=== PATIENT | male | born 1965 | race Caucasian/White ===

== ENCOUNTER 2017-12-06 04:37 | Emergency (ER) | payer MEDICAID ==
--- NOTE | 2017-12-06 04:48 | ED PDOC ---
Arrival/HPI - General Chief Complaint: Abdominal Pain Time Seen by Provider: 12/06/17 04:39 Historian: Patient - History of Present Illness Narrative History of Present Illness (Text): 12/06/17 04:48 Sanjay Greenberg is a 52 year old male who present to the Emergency department complaining of abdominal pain status post hernia repair surgery yesterday. Patient states he recently underwent an umbilical hernia repair yesterday at [facility] yesterday on Percocet. Patient state tonight he woke up with pain over surgical site and notes he feels bloated. Patient reports some associated constipated. Patient denies any fever, chills, chest pain, shortness of breath, nausea, vomiting, diarrhea, urinary symptoms, back pain, neck pain, headache, dizziness, or any other complaints. Symptom Onset: Gradual (yesterday) Symptom Course: Unchanged Activities at Onset: Sleeping Context: Home Past Medical History - Provider Review Nursing Documentation Reviewed: Yes - Psychiatric Hx Substance Use: No Family/Social History - Physician Review Nursing Documentation Reviewed: Yes Family/Social History: Unknown Family HX Smoking Status: no Hx Alcohol Use: No Hx Substance Use: No Allergies/Home Meds Allergies/Adverse Reactions: Allergies No Known Allergies Allergy (Verified 07/05/17 08:35) Home Medications: Home Meds Medication Instructions Recorded Confirmed Omeprazole 40 mg PO DAILY 12/06/17 12/06/17 oxyCODONE/Acetaminophen [Percocet 1 tab PO PRN PRN 12/06/17 12/06/17 5/325 mg Tab] Review of Systems - Physician Review All systems were reviewed & negative as marked: Yes - Review of Systems Constitutional: Normal. absent: Fevers Eyes: Normal ENT: Normal Respiratory: Normal. absent: SOB, Cough Cardiovascular: Normal. absent: Chest Pain Gastrointestinal: Abdominal Pain, Constipation. absent: Diarrhea, Vomiting Genitourinary Male: Normal. absent: Dysuria, Frequency, Hematuria, Urinary Output Changes Musculoskeletal: Normal. absent: Back Pain, Neck Pain Skin: Normal. absent: Rash Neurological: Normal. absent: Headache, Dizziness Endocrine: Normal Hemo/Lymphatic: Normal Psychiatric: Normal Physical Exam Vital Signs Reviewed: Yes Vital Signs Temp Pulse Resp BP Pulse Ox 12/06/17 10:47 108 H 18 132/75 94 L 12/06/17 07:26 98.2 F 107 H 20 143/77 95 12/06/17 04:53 98.1 F 103 H 20 142/85 92 L Temperature: Afebrile Blood Pressure: Normal Pulse: Regular Respiratory Rate: Normal Appearance: Positive for: Well-Appearing, Non-Toxic, Comfortable Pain Distress: None Mental Status: Positive for: Alert and Oriented X 3 - Systems Exam Head: Present: Atraumatic, Normocephalic Pupils: Present: PERRL Extroacular Muscles: Present: EOMI Conjunctiva: Present: Normal Mouth: Present: Moist Mucous Membranes Neck: Present: Normal Range of Motion Respiratory/Chest: Present: Clear to Auscultation, Good Air Exchange. No: Respiratory Distress, Accessory Muscle Use Cardiovascular: Present: Regular Rate and Rhythm, Normal S1, S2. No: Murmurs Abdomen: Present: Tenderness (Tenderness over umbilicus), Other (Surgical site clean/dry, no sign of infection noted). No: Distention, Peritoneal Signs Back: Present: Normal Inspection Upper Extremity: Present: Normal Inspection. No: Cyanosis, Edema Lower Extremity: Present: Normal Inspection. No: Edema Neurological: Present: GCS=15, CN II-XII Intact, Speech Normal Skin: Present: Warm, Dry, Normal Color. No: Rashes Psychiatric: Present: Alert, Oriented x 3, Normal Insight, Normal Concentration Medical Decision Making ED Course and Treatment: 12/06/17 04:48 Impression: 52 year old male complaining of abdominal pain and constipation. Requested a fleet enema. Plan: -- Bladder scan -- XR Abdomen -- Reassess and disposition Progress Notes: 12/06/17 06:12 Reviewed radiology, XR Abdomen shows no acute processes, no free air. - Lab Interpretations Lab Results: 12/06/17 07:08 12/06/17 07:08 Lab Results 12/06/17 07:08: Sodium 130 L, Potassium 4.2, Chloride 90 L, Carbon Dioxide 28, Anion Gap 17, BUN 13, Creatinine 0.9, Est GFR ( Amer) > 60, Est GFR (Non- Af Amer) > 60, Random Glucose 127 H, Calcium 10.0, Total Bilirubin 1.2, AST 63 H , ALT 54, Alkaline Phosphatase 75, Total Protein 7.9, Albumin 4.4, Globulin 3.5 , Albumin/Globulin Ratio 1.2 12/06/17 07:08: WBC 18.0 H, RBC 5.00, Hgb 15.5, Hct 42.5, MCV 85.0, MCH 31.0, MCHC 36.5, RDW 12.8, Plt Count 347, MPV 9.1, Gran % 87.6 H, Lymph % (Auto) 5.9 L , Mason % (Auto) 5.4, Eos % (Auto) 0.9 L, Baso % (Auto) 0.2, Gran # 15.79 H, Lymph # (Auto) 1.1 L, Mason # (Auto) 1.0 H, Eos # (Auto) 0.2, Baso # (Auto) 0.03 - RAD Interpretation Radiology Orders: 12/06/17 04:55 ABD 2 VIEWS (FLAT/UP OR DECUB) [RAD] Stat 12/06/17 06:57 ABD & PELVIS IV CONTRAST ONLY [CT] Stat Repairing Calibrator: ED Physician - Medication Orders Current Medication Orders: Discontinued Medications Sodium Chloride (Sodium Chloride 0.9%) 1,000 mls @ 80 mls/hr IV .[id number] CECIL Last Admin: 12/06/17 07:18 Dose: 80 mls/hr eMAR Start Stop Document 12/06/17 07:18 OCS (Rec: 12/06/17 07:19 OCS [id number]) Intravenous Solution Start Date 12/06/17 Start Time 07:19 Morphine Sulfate (Morphine) 2 mg IVP STAT STA Stop: 12/06/17 06:23 Last Admin: 12/06/17 06:47 Dose: Morphine Sulfate (Morphine) 2 mg SC STAT STA Stop: 12/06/17 06:23 Last Admin: 12/06/17 06:37 Dose: 2 mg [facility] Pain Assessment Document 12/06/17 06:37 CNR (Rec: 12/06/17 06:38 [facility]NR [id number] Pain Reassessment Is this a pain reassessment? Yes Subcutaneous Administrations Document 12/06/17 06:37 CNR (Rec: 12/06/17 06:38 CNR [facility] [id number] Injection Site MAR Injection Site Right Arm Charges for Administration # of Subcutaneous Administrations 1 Re-Assess: FAUZIA Pain Assessment Document 12/06/17 07:37 OCS (Rec: 12/06/17 08:25 OCS [id number]) Pain Reassessment Is this a pain reassessment? Yes Sleep Is patient sleeping during reassessment? No Presence of Pain Presence of Pain Yes Pain Scale Used Pain Scale Used Numeric Description Description Constant Intensity of Pain at present 10 Morphine Sulfate (Morphine) 4 mg IVP STAT STA Stop: 12/06/17 08:05 Last Admin: 12/06/17 08:21 Dose: 4 mg MAR Pain Assessment Document 12/06/17 08:21 OCS (Rec: 12/06/17 08:22 OCS [id number]) Pain Reassessment Is this a pain reassessment? Yes Sleep Is patient sleeping during reassessment? No Presence of Pain Presence of Pain Yes Pain Scale Used Pain Scale Used Numeric Description Description Constant Intensity of Pain at present 10 Pain Behavior Moaning Irritability Aggravating Factors ADL's IVP Administration Document 12/06/17 08:21 OCS (Rec: 12/06/17 08:22 OCS [id number]) Charges for Administration # of IVP Administrations 1 Ondansetron HCl (Zofran Inj) 4 mg IVP STAT STA Stop: 12/06/17 08:05 Last Admin: 12/06/17 08:21 Dose: 4 mg IVP Administration Document 12/06/17 08:21 OCS (Rec: 12/06/17 08:21 OCS [id number]) Charges for Administration # of IVP Administrations 1 Sodium Phosphate (Fleet Enema) 135 ml RC STAT STA Stop: 12/06/17 05:23 Last Admin: 12/06/17 05:58 Dose: 135 ml - Transfer of Care Patient signed out to Dr:Alejandra villasenor ct results and dispo - Scribe Statement The provider has reviewed the documentation as recorded by the Andrew Reich Provider Scribe Attestation: All medical record entries made by the Scribe were at my direction and personally dictated by me. I have reviewed the chart and agree that the record accurately reflects my personal performance of the history, physical exam, medical decision making, and the department course for this patient. I have also personally directed, reviewed, and agree with the discharge instructions and disposition. Disposition/Present on Arrival - Present on Arrival Any Indicators Present on Arrival: No History of DVT/PE: No History of Uncontrolled Diabetes: No Urinary Catheter: No History of Decub. Ulcer: No History Surgical Site Infection Following: None - Disposition Have Diagnosis and Disposition been Completed?: Yes Diagnosis: Post-op pain, Seroma after procedure Disposition: HOME/ ROUTINE Disposition Time: 07:00 Condition: GOOD Discharge Instructions (ExitCare): Groin Hernia Repair (DC), Postoperative Pain (DC) Additional Instructions: Sanjay, I spoke with your surgeon, you have a hematoma (bruise) in the incisional area and it is probably why you are having pain. Percocet is for bad pain, but it is addicting, so only take it if the pain is unbearable. Dr Dodd wants to see you tomorrow in her office. Best- Dr. Fermin Osborne Prescriptions: oxyCODONE/Acetaminophen [Percocet 5/325 mg Tab] 1 ea PO QID #12 tab Ondansetron ODT [Zofran ODT] 8 mg PO TID #15 odt Referrals: Magdiel Cm MD [Primary Care Provider] - Follow up with primary Forms: [employer] (Bahamian)
[2017-12-06] MEDS ORDERED: Morphine 4 mg/ml ISec SC STA (06:22)
[2017-12-06] MEDS ORDERED: Morphine 4 mg/ml ISec IVP STA ×2 (06:22→08:04)
[2017-12-06] MEDS ORDERED: Sodium Chloride 0.9% 1,000 ML IV SCH (07:00)
--- NOTE | 2017-12-06 07:17 | ED PDOC ---
Physical Exam Vital Signs Reviewed: Yes Vital Signs Temp Pulse Resp BP Pulse Ox 12/06/17 07:26 98.2 F 107 H 20 143/77 95 12/06/17 04:53 98.1 F 103 H 20 142/85 92 L Temperature: Afebrile Blood Pressure: Normal Pulse: Tachycardic Respiratory Rate: Normal Medical Decision Making ED Course and Treatment: 12/06/17 07:16 Patient endorsed to me by Dr. Marcelo, pending CT results, re-evaluation and disposition. Report Date : 12/06/2017 09:35:19 PROCEDURE: CT Abdomen and Pelvis without intravenous contrast Dictator : Johnny Wilhelm MD IMPRESSION: There has been recent hernia surgery. There is a collection of blood and air at the surgical site just beneath the surgical clips. This measures 12 cm with by 4.4 cm AP x 8 cm in height. This is consistent with a postoperative seroma or hematoma. There is no evidence of herniated bowel loops. 12/06/17 10:23 Case discussed with patients surgeon Dr. Dodd, states to administer pain medication and have patient follow up tomorrow in his office. - Lab Interpretations Lab Results: 12/06/17 07:08 12/06/17 07:08 Lab Results 12/06/17 07:08: Sodium 130 L, Potassium 4.2, Chloride 90 L, Carbon Dioxide 28, Anion Gap 17, BUN 13, Creatinine 0.9, Est GFR ( Amer) > 60, Est GFR (Non- Af Amer) > 60, Random Glucose 127 H, Calcium 10.0, Total Bilirubin 1.2, AST 63 H , ALT 54, Alkaline Phosphatase 75, Total Protein 7.9, Albumin 4.4, Globulin 3.5 , Albumin/Globulin Ratio 1.2 12/06/17 07:08: WBC 18.0 H, RBC 5.00, Hgb 15.5, Hct 42.5, MCV 85.0, MCH 31.0, MCHC 36.5, RDW 12.8, Plt Count 347, MPV 9.1, Gran % 87.6 H, Lymph % (Auto) 5.9 L , [place] % (Auto) 5.4, Eos % (Auto) 0.9 L, Baso % (Auto) 0.2, Gran # 15.79 H, Lymph # (Auto) 1.1 L, [place] # (Auto) 1.0 H, Eos # (Auto) 0.2, Baso # (Auto) 0.03 - RAD Interpretation Radiology Orders: 12/06/17 04:55 ABD 2 VIEWS (FLAT/UP OR DECUB) [RAD] Stat 12/06/17 06:57 ABD & PELVIS IV CONTRAST ONLY [CT] Stat - Medication Orders Current Medication Orders: Sodium Chloride (Sodium Chloride 0.9%) 1,000 mls @ 80 mls/hr IV .[id number] CECIL Last Admin: 12/06/17 07:18 Dose: 80 mls/hr eMAR Start Stop Document 12/06/17 07:18 OCS (Rec: 12/06/17 07:19 OCS [id number]) Intravenous Solution Start Date 12/06/17 Start Time 07:19 Discontinued Medications Morphine Sulfate (Morphine) 2 mg IVP STAT STA Stop: 12/06/17 06:23 Last Admin: 12/06/17 06:47 Dose: Morphine Sulfate (Morphine) 2 mg SC STAT STA Stop: 12/06/17 06:23 Last Admin: 12/06/17 06:37 Dose: 2 mg [facility] Pain Assessment Document 12/06/17 06:37 CNR (Rec: 12/06/17 06:38 CNR [facility] [id number] Pain Reassessment Is this a pain reassessment? Yes Subcutaneous Administrations Document 12/06/17 06:37 CNR (Rec: 12/06/17 06:38 CNR [facility] [id number] Injection Site MAR Injection Site Right Arm Charges for Administration # of Subcutaneous Administrations 1 Re-Assess: MAR Pain Assessment Document 12/06/17 07:37 OCS (Rec: 12/06/17 08:25 OCS [id number]) Pain Reassessment Is this a pain reassessment? Yes Sleep Is patient sleeping during reassessment? No Presence of Pain Presence of Pain Yes Pain Scale Used Pain Scale Used Numeric Description Description Constant Intensity of Pain at present 10 Morphine Sulfate (Morphine) 4 mg IVP STAT STA Stop: 12/06/17 08:05 Last Admin: 12/06/17 08:21 Dose: 4 mg MAR Pain Assessment Document 12/06/17 08:21 OCS (Rec: 12/06/17 08:22 OCS [id number]) Pain Reassessment Is this a pain reassessment? Yes Sleep Is patient sleeping during reassessment? No Presence of Pain Presence of Pain Yes Pain Scale Used Pain Scale Used Numeric Description Description Constant Intensity of Pain at present 10 Pain Behavior Moaning Irritability Aggravating Factors ADL's IVP Administration Document 12/06/17 08:21 OCS (Rec: 12/06/17 08:22 OCS [id number]) Charges for Administration # of IVP Administrations 1 Ondansetron HCl (Zofran Inj) 4 mg IVP STAT STA Stop: 12/06/17 08:05 Last Admin: 12/06/17 08:21 Dose: 4 mg IVP Administration Document 12/06/17 08:21 OCS (Rec: 12/06/17 08:21 OCS [id number]) Charges for Administration # of IVP Administrations 1 Sodium Phosphate (Fleet Enema) 135 ml RC STAT STA Stop: 12/06/17 05:23 Last Admin: 12/06/17 05:58 Dose: 135 ml - Scribe Statement The provider has reviewed the documentation as recorded by the Laceyibstarla Mckenzie Provider Scribe Attestation: All medical record entries made by the Scribe were at my direction and personally dictated by me. I have reviewed the chart and agree that the record accurately reflects my personal performance of the history, physical exam, medical decision making, and the department course for this patient. I have also personally directed, reviewed, and agree with the discharge instructions and disposition. Disposition/Present on Arrival - Present on Arrival Any Indicators Present on Arrival: No History of DVT/PE: No History of Uncontrolled Diabetes: No Urinary Catheter: No History of Decub. Ulcer: No History Surgical Site Infection Following: None - Disposition Have Diagnosis and Disposition been Completed?: Yes Diagnosis: Post-op pain, Seroma after procedure Disposition: HOME/ ROUTINE Disposition Time: 10:23 Patient Plan: Discharge Condition: GOOD Discharge Instructions (ExitCare): Groin Hernia Repair (DC), Postoperative Pain (DC) Additional Instructions: Sanjay, I spoke with your surgeon, you have a hematoma (bruise) in the incisional area and it is probably why you are having pain. Percocet is for bad pain, but it is addicting, so only take it if the pain is unbearable. Dr Dodd wants to see you tomorrow in her office. Jose Cruz- Dr. Fermin Osborne Prescriptions: Ondansetron ODT [Zofran ODT] 8 mg PO TID #15 odt oxyCODONE/Acetaminophen [Percocet 5/325 mg Tab] 1 ea PO QID #12 tab Referrals: Magdiel Cm MD [Primary Care Provider] - Follow up with primary Forms: [employer] (Italian)
[2017-12-06 07:26] VITALS: TEMP 98.2
[2017-12-06 07:36] LABS: ALB/GLOB RATIO 1.2 (1.1-1.8); ALBUMIN 4.4 g/dL (3.0-4.8); ALT/SGPT 54 U/L (7-56); AST/SGOT 63 U/L (17-59); BASO # 0.03 K/mm3 (0.0-2.0); BASO % 0.2 % (0.0-3.0); BLOOD UREA NITROGEN 13 mg/dL (7-21); EOS # 0.2 (0.0-0.7); EOS % 0.9 % (1.5-5.0); GFR AFRICAN-AMERICAN > 60; GFR NON-AFRICAN AMERICAN > 60; GRAN # 15.79 (1.4-6.5); GRAN % 87.6 % (50.0-68.0); HEMOGLOBIN 15.5 g/dL (14.0-18.0); LYMPH # 1.1 (1.2-3.4); LYMPH % 5.9 % (22.0-35.0); MEAN CORPUSCULAR HGB CONC 36.5 g/dl (31.0-37.0); MEAN PLATELET VOLUME 9.1 fl (7.0-11.0); MONO % 5.4 % (1.0-6.0); RED CELL DISTRIBUTION WIDTH 12.8 % (11.5-14.5)
[2017-12-06] MEDS ORDERED: Iohexol 350 MG/100 ML VIAL ONE (07:54)
--- NOTE | 2017-12-06 09:36 | CT ---
PROCEDURE: CT Abdomen and Pelvis without intravenous contrast HISTORY: abd pain COMPARISON: 11/01/2017 CT from [facility] TECHNIQUE: Without contrast. Contrast Dose: Radiation dose: Total exam DLP = Total exam DLP = 1256 mGy-cm. This CT exam was performed using one or more of the following dose reduction techniques: Automated exposure control, adjustment of the mA and/or kV according to patient size, and/or use of iterative reconstruction technique. FINDINGS: LOWER THORAX: Unremarkable. LIVER: Unremarkable. No gross lesion or ductal dilatation. GALLBLADDER AND BILE DUCTS: Unremarkable. PANCREAS: Unremarkable. No gross lesion or ductal dilatation. SPLEEN: Unremarkable. ADRENALS: Unremarkable. No mass. KIDNEYS AND URETERS: Unremarkable. No hydronephrosis. No solid mass. VASCULATURE: Unremarkable. No aortic aneurysm. BOWEL: Unremarkable. No obstruction. No gross mural thickening. There has been recent hernia surgery. There is a collection of blood and air at the surgical site just beneath the surgical clips. This measures 12 cm with by 4.4 cm AP x 8 cm in height. This is consistent with a postoperative seroma or hematoma. There is no evidence of herniated bowel loops. There is moderate distention of the colon. Small bowel is normal in caliber. APPENDIX: Unremarkable. Normal appendix. PERITONEUM: Unremarkable. No free fluid. No free air. LYMPH NODES: Unremarkable. No enlarged lymph nodes. BLADDER: Unremarkable. REPRODUCTIVE: Unremarkable. BONES: No acute fracture. OTHER FINDINGS: None. IMPRESSION: There has been recent hernia surgery. There is a collection of blood and air at the surgical site just beneath the surgical clips. This measures 12 cm with by 4.4 cm AP x 8 cm in height. This is consistent with a postoperative seroma or hematoma. There is no evidence of herniated bowel loops.
--- NOTE | 2017-12-06 09:47 | RAD ---
HISTORY: abd pain COMPARISON: No prior. FINDINGS: BOWEL: Normal. No obstruction. No free air. Mildly dilated colon. BONES: Normal. OTHER FINDINGS: None. IMPRESSION: Mildly dilated colon. No evidence of small bowel obstruction
[2017-12-06 10:48] VITALS: BP 132/75; PULSE 108; RESP 18; O2SAT 94
== END 2017-12-06 11:05 | disposition home or self-care (01) ==
LOC: ED 04:37 → MERGE 04:37 → ED 11:05
DX: G89.18 Other acute postprocedural pain (principal); L76.34 Postprocedural seroma of skin and subcutaneous tissue following other procedure
CPT/HCPCS: 74019; 74177; 80053; 85025; 96372; 96374; 96375; 99284; J2270; J2405; J7040; Q9967

== ENCOUNTER 2018-05-25 09:09 | Emergency (ER) | payer MEDICAID ==
[2018-05-25 09:09] VITALS: BMI 32.5
[2018-05-25 09:38] VITALS: TEMP 98.7
[2018-05-25] MEDS ORDERED: Amoxicillin-Clav 875-125 mg Tab PO STA (09:38)
--- NOTE | 2018-05-25 09:42 | ED PDOC ---
Arrival/HPI - General Historian: Patient - History of Present Illness Narrative History of Present Illness (Text): 05/25/18 09:39 52yo male with pmhx of hypertension present with complaint of sore throat, b/l ear pain, nasal congestion, facial pain, nonproductive cough x 2days. He did not take any medication for the symptoms. Denies fever, chills, sick contact, travel, nausea, vomiting ,any other complaint. <Rosa Puente A - Last Filed: 05/25/18 09:39> <Edgardo Smith - Last Filed: 05/25/18 15:51> - General Chief Complaint: ENT Problem Time Seen by Provider: 05/25/18 09:31 Past Medical History - Provider Review Nursing Documentation Reviewed: Yes - Infectious Disease Hx of Infectious Diseases: None - Cardiac Hx Cardiac Disorders: Yes Hx Hypertension: Yes - Pulmonary Hx Respiratory Disorders: Yes Hx Bronchitis: Yes - Neurological Hx Neurological Disorder: No - HEENT Hx HEENT Disorder: No - Renal Hx Renal Disorder: No - Endocrine/Metabolic Hx Endocrine Disorders: No - Hematological/Oncological Hx Blood Disorders: No - Integumentary Hx Dermatological Disorder: No - Musculoskeletal/Rheumatological Hx Musculoskeletal Disorders: Yes Hx Arthritis: Yes - Gastrointestinal Hx Gastrointestinal Disorders: No - Psychiatric Hx Psychophysiologic Disorder: Yes Hx Anxiety: Yes Hx Substance Use: No - Anesthesia Hx Anesthesia: Yes Hx Anesthesia Reactions: No <Rosa Puente A - Last Filed: 05/25/18 09:39> Family/Social History - Physician Review Nursing Documentation Reviewed: Yes Family/Social History: Unknown Family HX Smoking Status: Light Smoker < 10 Cigarettes Daily Hx Alcohol Use: Yes Frequency of alcohol use: Socially Hx Substance Use: No <Rosa Puente A - Last Filed: 05/25/18 09:39> Allergies/Home Meds <Rosa Puente A - Last Filed: 05/25/18 09:39> <Edgardo Smith - Last Filed: 05/25/18 15:51> Allergies/Adverse Reactions: Allergies No Known Allergies Allergy (Verified 12/27/17 18:45) Home Medications: Home Meds Medication Instructions Recorded Confirmed RX: Losartan [Cozaar] 25 mg PO DAILY 05/25/18 05/25/18 Review of Systems - Physician Review All systems were reviewed & negative as marked: Yes - Review of Systems Constitutional: Normal Eyes: Normal ENT: Sore Throat, Other (Ear pain) Respiratory: Cough Cardiovascular: Normal Gastrointestinal: Normal Genitourinary Male: Normal Musculoskeletal: Normal Skin: Normal Neurological: Normal Endocrine: Normal Hemo/Lymphatic: Normal Psychiatric: Normal <Diru,Happiness A - Last Filed: 05/25/18 09:39> Physical Exam Vital Signs Reviewed: Yes Vital Signs Temp Pulse Resp BP Pulse Ox 05/25/18 09:23 98.7 F 93 H 16 134/90 95 Temperature: Afebrile Blood Pressure: Normal Pulse: Regular Respiratory Rate: Normal Appearance: Positive for: Well-Appearing, Non-Toxic, Comfortable Pain Distress: None Mental Status: Positive for: Alert and Oriented X 3 - Systems Exam Head: Present: Atraumatic, Normocephalic Pupils: Present: PERRL Extroacular Muscles: Present: EOMI Conjunctiva: Present: Normal Mouth: Present: Moist Mucous Membranes Pharnyx: Present: Normal. No: ERYTHEMA, EXUDATE, TONSILS ENLARGED, Peritonsilar Swelling, Uvular Deviation, Muffled/Hoarse Voice, Strider Nose (Internal): Present: Boggy (B/L turbinates), Other (Tenderness on palpation over the maxillary and frontal sinuses) Neck: Present: Normal Range of Motion Respiratory/Chest: Present: Clear to Auscultation, Good Air Exchange. No: Respiratory Distress, Accessory Muscle Use, Wheezes, Decreased Breath Sounds, Retracting, Rhonchi, Tachypneic Cardiovascular: Present: Regular Rate and Rhythm, Normal S1, S2. No: Murmurs Abdomen: No: Tenderness, Distention, Peritoneal Signs Back: Present: Normal Inspection Upper Extremity: Present: Normal Inspection. No: Cyanosis, Edema Lower Extremity: Present: Normal Inspection. No: Edema Neurological: Present: GCS=15, CN II-XII Intact, Speech Normal Skin: Present: Warm, Dry, Normal Color. No: Rashes Psychiatric: Present: Alert, Oriented x 3, Normal Insight, Normal Concentration <Diru,Happiness A - Last Filed: 05/25/18 09:39> Vital Signs Temp Pulse Resp BP Pulse Ox 05/25/18 10:04 96 05/25/18 10:03 90 18 135/87 96 05/25/18 09:23 98.7 F 93 H 16 134/90 95 <Tolerico,Edgardo - Last Filed: 05/25/18 15:51> Medical Decision Making ED Course and Treatment: 05/25/18 09:43 52yo male who present with stated history. He was hemodynamically stable in ED. He had tenderness over his sinuses. His PE was otherwise benign. Secondary to pt's symptom and exam he will be treated for sinusitits with abx, which was possible causing his otalgia and sore throat. Plan was DW the pt and he understood. He was referred to his PMd TRT Ed for worsening symptoms. <Rosa Puente - Last Filed: 05/25/18 09:39> - Medication Orders Current Medication Orders: Discontinued Medications Amoxicillin/Clavulanate Potassium (Augmentin 875 Mg-125 Mg Tab) 1 tab PO STAT STA; Protocol Stop: 05/25/18 09:39 Last Admin: 05/25/18 10:02 Dose: 1 tab Benzonatate (Tessalon Perles) 100 mg PO ONCE STA Stop: 05/25/18 09:39 Last Admin: 05/25/18 10:02 Dose: 100 mg Ibuprofen (Motrin Tab) 600 mg PO STAT STA Stop: 05/25/18 09:40 Last Admin: 05/25/18 10:02 Dose: 600 mg <Edgardo Smith - Last Filed: 05/25/18 15:51> - PA / DOUGHNUT [employer]YER / Resident Statement / has reviewed & agrees with the documentation as recorded. <Edgardo Smith - Last Filed: 05/25/18 15:51> Disposition/Present on Arrival - Present on Arrival Any Indicators Present on Arrival: No History of DVT/PE: No History of Uncontrolled Diabetes: No Urinary Catheter: No History of Decub. Ulcer: No History Surgical Site Infection Following: None - Disposition Have Diagnosis and Disposition been Completed?: Yes Disposition Time: 09:50 Patient Plan: Discharge <Rosa Puente - Last Filed: 05/25/18 09:39> <Edgardo Smith - Last Filed: 05/25/18 15:51> - Disposition Diagnosis: Acute sinusitis, Otalgia, Sore throat Disposition: HOME/ ROUTINE Condition: STABLE Discharge Instructions (ExitCare): Sinusitis in Adults, Sore Throat, Adult (DC) Additional Instructions: Drink plenty of fluid and rest Follow up with your Doctor Return to ED for any new or worsening symptoms Prescriptions: Amoxicillin/Clavulanate [Augmentin 875 MG-125 MG] 1 tab PO BID #14 tab RX: Ibuprofen [Motrin Tab] 600 mg PO Q6 #15 tab Benzonatate [Tessalon Perle] 100 mg PO TID #20 capsule Referrals: Destiney العراقي MD [Medical Doctor] - Follow up with primary Forms: [employer] (Taiwanese)
[2018-05-25 10:04] VITALS: BP 135/87; PULSE 90; RESP 18; O2SAT 96
== END 2018-05-25 10:04 | disposition home or self-care (01) ==
LOC: ED 09:09
DX: J01.90 Acute sinusitis, unspecified (principal); J02.9 Acute pharyngitis, unspecified; H92.03 Otalgia, bilateral; F17.210 Nicotine dependence, cigarettes, uncomplicated

== ENCOUNTER 2018-07-04 10:54 | Emergency (ER) | payer MEDICAID ==
[2018-07-04 11:07] VITALS: BMI 31.2
[2018-07-04 11:15] VITALS: O2SAT 97
--- NOTE | 2018-07-04 11:19 | ED PDOC ---
Arrival/HPI - History of Present Illness Narrative History of Present Illness (Text): 07/04/18 11:16 52 y/o male, pmh including htn, nkda, +smoker, c/o runny nose/cough and chest congestion x 1 month. PT. stated that he has runny nose, associated with productive coughing, admits chest congestion, no fever or chills, no recent traveling, no night sweat, no dizziness, no rash, no palpitation, no rash, no numbness or tingling, no other medical or psychological complaints. Past Medical History - Provider Review Nursing Documentation Reviewed: Yes - Infectious Disease Hx of Infectious Diseases: None - Cardiac Hx Cardiac Disorders: Yes Hx Hypertension: Yes - Pulmonary Hx Respiratory Disorders: Yes Hx Bronchitis: Yes - Neurological Hx Neurological Disorder: No - HEENT Hx HEENT Disorder: No - Renal Hx Renal Disorder: No - Endocrine/Metabolic Hx Endocrine Disorders: No - Hematological/Oncological Hx Blood Disorders: No - Integumentary Hx Dermatological Disorder: No - Musculoskeletal/Rheumatological Hx Musculoskeletal Disorders: Yes Hx Arthritis: Yes - Gastrointestinal Hx Gastrointestinal Disorders: No - Psychiatric Hx Psychophysiologic Disorder: No Hx Substance Use: No - Anesthesia Hx Anesthesia: Yes Hx Anesthesia Reactions: No Family/Social History - Physician Review Nursing Documentation Reviewed: Yes Family/Social History: Unknown Family HX Smoking Status: Light Smoker < 10 Cigarettes Daily Hx Alcohol Use: No Hx Substance Use: No Allergies/Home Meds Allergies/Adverse Reactions: Allergies No Known Allergies Allergy (Verified 12/27/17 18:45) Home Medications: Home Meds Medication Instructions Recorded Confirmed Losartan [Cozaar] 25 mg PO DAILY 05/25/18 07/04/18 Review of Systems - Review of Systems Constitutional: absent: Fatigue, Fevers Eyes: absent: Vision Changes ENT: Rhinorrhea. absent: Hearing Changes Respiratory: Cough, Sputum. absent: SOB Cardiovascular: absent: Chest Pain Gastrointestinal: absent: Abdominal Pain, Nausea, Vomiting Musculoskeletal: absent: Arthralgias, Back Pain Skin: absent: Rash, Pruritis Neurological: absent: Headache, Dizziness Psychiatric: absent: Anxiety, Depression, Suicidal Ideation Physical Exam Vital Signs Reviewed: Yes Vital Signs Temp Pulse Resp BP Pulse Ox 07/04/18 11:07 98.0 F 87 17 143/89 97 Temperature: Afebrile Blood Pressure: Normal Pulse: Regular Respiratory Rate: Normal Appearance: Positive for: Well-Appearing, Non-Toxic, Comfortable Pain Distress: Mild Mental Status: Positive for: Alert and Oriented X 3 - Systems Exam Head: Present: Atraumatic, Normocephalic, Other (Facial: +ttp on the rt. maxillary sinus region, no facial or periorbital swelling. ). No: Tenderness, Contusion, Swelling, Ecchymosis, Abrasion, Laceration Pupils: Present: PERRL Extroacular Muscles: Present: EOMI Conjunctiva: Present: Normal Ears: Present: NORMAL TM, Normal Canal. No: Erythema Mouth: Present: Moist Mucous Membranes Pharnyx: No: ERYTHEMA, EXUDATE, TONSILS ENLARGED Nose (External): Present: Atraumatic. No: Abrasion, Contusion, Laceration Nose (Internal): Present: Normal Inspection, No Active Bleeding, Rhinorrhea. No: Septal Hematoma, Epistaxis Neck: Present: Normal Range of Motion, Trachea Midline. No: Meningeal Signs, MIDLINE TENDERNESS, Paraspinal Tenderness, Lymphadenopathy Respiratory/Chest: Present: Clear to Auscultation, Good Air Exchange. No: Respiratory Distress, Accessory Muscle Use, Wheezes, Decreased Breath Sounds, Rales, Retracting, Rhonchi, Tachypneic, Tender to Palpation Cardiovascular: Present: Regular Rate and Rhythm, Normal S1, S2, Other (no pedal edema). No: Murmurs Abdomen: No: Tenderness, Distention, Peritoneal Signs, Rebound, Guarding, Hernias Back: Present: Normal Inspection. No: CVA Tenderness, Midline Tenderness, Paraspinal Tenderness, Pain with Leg Raise, Decubitus Ulcer Upper Extremity: Present: Normal Inspection. No: Cyanosis, Edema Lower Extremity: Present: Normal Inspection. No: Edema Neurological: Present: GCS=15, CN II-XII Intact, Speech Normal, Motor Func Grossly Intact, Gait Normal, Memory Normal Skin: Present: Warm, Dry, Normal Color. No: Rashes Psychiatric: Present: Alert, Oriented x 3, Normal Insight, Normal Concentration Medical Decision Making ED Course and Treatment: 07/04/18 11:19 -Labs/rapid flu -Chest xray -Observe and reassess 07/04/18 14:08 -Chest xray ER wet read with no active disease -Rapid flu is negative -Labs are non-significant except Na 127 from 139 -UA show no UTI -Urine osmolarity is pending -Serum osmolarity is 290, within normal limit -All labs and radiology results discussed with the patient, advised recommendation for admission and further laboratory/radiology testing and inpatient treatment but he refused, stated that he has to leave now. He stated that he wants to sign out against medical advice. AMA ER The patient refuses to stay in the Emergency Room (ER) to continue the care and wishes to leave the emergency department against my medical advice. Patient was told that staying in the ER is necessary and a full explanation of the reasons why was given, and understood by the patient with alert and oriented x4. The risk of leaving were explained in laymans term and including but not limited hyponatremia, stroke, cancer, cardiac arrythmia, organ failure, disability , pain, worsening of condition, permanent disability and from an undiagnosed or untreated condition. The patient accepts these risks, and is in my judgment is competent and capable of understanding the clinical situation and explanation of the risk of leaving. The patient is able to verbally repeated me back the above explained risks and benefits back to me, and verbally expressed understanding. Patient was given the opportunity to ask questions and change mind. The patient was instructed regarding the best care for the present symptoms, and to follow up as soon as possible with the primary care doctor including specialist or return to the emergency department at any time for continuing care. -You sign out against medical advice. You are advised to to be admitted but you declined. you are given augmentin, flonase, claritin, motrin, follow up with your own pmd and ENT/behavior interventionist within 1 day, decrease water intake as your sodium is low, return to the ER if you like to continue the medical care - RAD Interpretation Radiology Orders: 07/04/18 11:15 CHEST TWO VIEWS (PA/LAT) [RAD] Stat Date of service: 07/04/2018 HISTORY: Cough and congestion for 1 month COMPARISON: No prior. TECHNIQUE: Chest PA and lateral FINDINGS: LINES AND TUBES: None. LUNG AND PLEURA: The lungs are well inflated and clear. No pleural effusion or pneumothorax. HEART AND MEDIASTINUM: The heart is not enlarged. No aortic atherosclerotic calcification present. The hilar and mediastinal contours are within normal limits. SKELETAL STRUCTURES: The bony structures are within normal limits for the patient's age. VISUALIZED UPPER ABDOMEN: Normal. OTHER FINDINGS: None. IMPRESSION: No active pulmonary disease. Global Marketing Manager: Radiologist - PA / MIDDLE SCHOOL PRINCIPAL / Resident Statement / has reviewed & agrees with the documentation as recorded. Disposition/Present on Arrival - Present on Arrival Any Indicators Present on Arrival: No History of DVT/PE: No History of Uncontrolled Diabetes: No Urinary Catheter: No History of Decub. Ulcer: No History Surgical Site Infection Following: None - Disposition Have Diagnosis and Disposition been Completed?: Yes Diagnosis: Sinusitis, Hyponatremia, Noncompliance Disposition: AGAINST MEDICAL ADVICE Disposition Time: 14:10 Condition: GOOD Additional Instructions: -You sign out against medical advice. You are advised to to be admitted but you declined. you are given augmentin, flonase, claritin, motrin, follow up with your own pmd and ENT/behavior interventionist within 1 day, decrease water intake as your sodium is low, return to the ER if you like to continue the medical care Prescriptions: Acetaminophen [Tylenol 325mg tab] 2 tab PO QID PRN #30 tab PRN Reason: Other Azithromycin [Zithromax] 250 mg PO DAILY #6 tab Fluticasone Nasal [Flonase] 1 spr NS DAILY #1 spr Loratadine [Claritin] 10 mg PO DAILY PRN #7 tab PRN Reason: Other Referrals: Dylan He DO [Staff Provider] - Follow up with primary Hammad Reed MD [Staff Provider] - Follow up with primary [facility] at [facility] [Outside] - Follow up with primary Forms: WORK NOTE
[2018-07-04 11:48] LABS: BASO # 0.04 K/mm3 (0.0-2.0); BASO % 0.6 % (0.0-3.0); EOS # 0.1 (0.0-0.7); EOS % 1.7 % (1.5-5.0); GRAN # 4.03 (1.4-6.5); GRAN % 62.7 % (50.0-68.0); HEMOGLOBIN 15.8 g/dL (14.0-18.0); LYMPH # 1.6 (1.2-3.4); LYMPH % 24.6 % (22.0-35.0); MEAN CELL VOLUME 84.1 fl (80.0-105.0); MEAN CORPUSCULAR HEMOGLOBIN 30.3 pg (25.0-35.0); MEAN PLATELET VOLUME 8.3 fl (7.0-11.0); MONO # 0.7 (0.1-0.6); MONO % 10.4 % (1.0-6.0); RBC 5.22 10^6/uL (3.5-6.1); RED CELL DISTRIBUTION WIDTH 14.6 % (11.5-14.5); WHITE BLOOD COUNT 6.4 10^3/uL (4.5-11.0)
[2018-07-04 11:57] LABS: ALB/GLOB RATIO 1.3 (1.1-1.8); ALBUMIN 4.2 g/dL (3.0-4.8); ALT/SGPT 59 U/L (7-56); AST/SGOT 53 U/L (17-59); BLOOD UREA NITROGEN 14 mg/dL (7-21); CALCIUM 8.3 mg/dL (8.4-10.5); GFR NON-AFRICAN AMERICAN > 60
[2018-07-04] MEDS ORDERED: Sodium Chloride 0.9% 1,000 ML IV SCH (13:00)
[2018-07-04 13:17] LABS: URINE BILIRUBIN NEGATIVE (NEGATIVE); URINE BLOOD NEGATIVE (NEGATIVE); URINE GLUCOSE (UA) NEGATIVE (NEGATIVE); URINE LEUKOCYTE ESTERASE NEGATIVE Leu/uL (NEGATIVE); URINE PROTEIN NEGATIVE mg/dL (<30 mg/dL); URINE UROBILINOGEN 0.2 E.U./dL (<1 E.U./dL)
[2018-07-04 13:19] LABS: URINE APPEARANCE CLEAR (CLEAR); URINE COLOR YELLOW (YELLOW)
--- NOTE | 2018-07-04 13:20 | RAD ---
Date of service: 07/04/2018 HISTORY: Cough and congestion for 1 month COMPARISON: No prior. TECHNIQUE: Chest PA and lateral FINDINGS: LINES AND TUBES: None. LUNG AND PLEURA: The lungs are well inflated and clear. No pleural effusion or pneumothorax. HEART AND MEDIASTINUM: The heart is not enlarged. No aortic atherosclerotic calcification present. The hilar and mediastinal contours are within normal limits. SKELETAL STRUCTURES: The bony structures are within normal limits for the patient's age. VISUALIZED UPPER ABDOMEN: Normal. OTHER FINDINGS: None. IMPRESSION: No active pulmonary disease.
[2018-07-04 14:33] VITALS: BP 138/79; PULSE 82; RESP 18; TEMP 98.1
== END 2018-07-04 14:36 | disposition left against medical advice (07) ==
LOC: ED 10:54
DX: J32.9 Chronic sinusitis, unspecified (principal); E87.1 Hypo-osmolality and hyponatremia; Z91.19 Patient's noncompliance with other medical treatment and regimen; I10 Essential (primary) hypertension; F17.210 Nicotine dependence, cigarettes, uncomplicated
CPT/HCPCS: 71046; 80053; 81003; 83930; 85025; 87804; 96374; 99285; J1885; J7030

== ENCOUNTER 2018-08-31 22:27 | Emergency (ER) | payer MEDICAID ==
[2018-08-31] MEDS ORDERED: Sodium Chloride 0.9% 1,000 ML IV STA (22:40)
[2018-08-31 22:46] VITALS: BMI 31.0
--- NOTE | 2018-08-31 23:08 | ED PDOC ---
Arrival/HPI - General Historian: Patient - History of Present Illness Narrative History of Present Illness (Text): 08/31/18 23:03 53 year old male with a past medical history of hypertension, hypercholesterolemia, and arthritis, presents to the emergency department with headache since this morning. Patient states it started on the left side, with a throbbing sensation. He denies any recent falls or trauma. He reports attempting to self-medicate with ibuprofen 800mg which did not assist in alleviating his pain. He reports pain radiates to his neck and down to his chest. Patient also informs running out of his hypertension medication recently. Of note, patient is intoxicated at this time. Patient denies any abdominal pain, nausea, vomiting, shortness of breath, vision problems, or any other complaint. PMD: Magdiel Cm Time/Duration: Prior to Arrival, 24 hours Symptom Onset: Gradual Symptom Course: Unchanged Quality: Aching Activities at Onset: Rest Context: Home <Luke Zelaya - Last Filed: 09/01/18 18:43> <Edgardo Smith - Last Filed: 09/02/18 12:35> - General Chief Complaint: Chest Pain Past Medical History - Provider Review Nursing Documentation Reviewed: Yes - Travel History Have you recently traveled outside [place] w/in the past 3 mons?: No - Infectious Disease Hx of Infectious Diseases: None - Cardiac Hx Cardiac Disorders: Yes Hx Hypertension: Yes - Pulmonary Hx Respiratory Disorders: Yes Hx Bronchitis: Yes - Neurological Hx Neurological Disorder: No - HEENT Hx HEENT Disorder: No - Renal Hx Renal Disorder: No - Endocrine/Metabolic Hx Endocrine Disorders: No - Hematological/Oncological Hx Blood Disorders: No - Integumentary Hx Dermatological Disorder: No - Musculoskeletal/Rheumatological Hx Musculoskeletal Disorders: Yes Hx Arthritis: Yes - Gastrointestinal Hx Gastrointestinal Disorders: No - Psychiatric Hx Psychophysiologic Disorder: No Hx Substance Use: No - Anesthesia Hx Anesthesia: Yes Hx Anesthesia Reactions: No <Luke Zelaya - Last Filed: 09/01/18 18:43> Family/Social History - Physician Review Nursing Documentation Reviewed: Yes Family/Social History: No Known Family HX Smoking Status: Light Smoker < 10 Cigarettes Daily Hx Alcohol Use: No Hx Substance Use: No <Luke Zelaya - Last Filed: 09/01/18 18:43> Allergies/Home Meds <Perfecto Zelayayl - Last Filed: 09/01/18 18:43> <Edgardo Smith - Last Filed: 09/02/18 12:35> Allergies/Adverse Reactions: Allergies No Known Allergies Allergy (Verified 08/31/18 22:33) Home Medications: Home Meds Medication Instructions Recorded Confirmed RX: Losartan [Cozaar] 25 mg PO DAILY 05/25/18 08/31/18 RX: Metoprolol Tartrate [Lopressor] 25 mg PO DAILY 08/31/18 08/31/18 Review of Systems - Physician Review All systems were reviewed & negative as marked: Yes - Review of Systems Eyes: absent: Vision Changes Respiratory: absent: SOB Cardiovascular: Chest Pain (radiation from headache) Gastrointestinal: absent: Abdominal Pain, Diarrhea, Nausea Musculoskeletal: Neck Pain Neurological: Headache <dAamlashaLuke costa - Last Filed: 09/01/18 18:43> Physical Exam Vital Signs Reviewed: Yes Vital Signs Temp Pulse Resp BP Pulse Ox 08/31/18 22:41 97.8 F 100 H 20 165/117 H 96 Temperature: Afebrile Blood Pressure: Hypertensive Pulse: Tachycardic Respiratory Rate: Normal Appearance: Positive for: Well-Appearing, Non-Toxic, Comfortable Pain Distress: None Mental Status: Positive for: Alert and Oriented X 3 - Systems Exam Head: Present: Atraumatic, Normocephalic Pupils: Present: PERRL Extroacular Muscles: Present: EOMI Conjunctiva: Present: Normal Mouth: Present: Moist Mucous Membranes Neck: Present: Normal Range of Motion Respiratory/Chest: Present: Clear to Auscultation, Good Air Exchange, Tender to Palpation (slight tenderness to palpation at midsternal region of anterior chest wall). No: Respiratory Distress, Accessory Muscle Use Cardiovascular: Present: Regular Rate and Rhythm, Normal S1, S2. No: Murmurs Abdomen: Present: Distention (Sodt but distented). No: Tenderness, Peritoneal Signs Back: Present: Normal Inspection Upper Extremity: Present: Normal Inspection. No: Cyanosis, Edema Lower Extremity: Present: Normal Inspection. No: Edema Neurological: Present: Speech Normal Skin: Present: Warm, Dry. No: Rashes, Normal Color (Jamison hue to face) Psychiatric: Present: Alert, Oriented x 3, Normal Insight, Normal Concentration <AdamlashajulissaLuke - Last Filed: 09/01/18 18:43> Vital Signs Temp Pulse Resp BP Pulse Ox 09/01/18 02:00 98.1 F 91 H 16 128/87 100 09/01/18 01:10 90 16 134/97 H 100 08/31/18 22:41 97.8 F 100 H 20 165/117 H 96 <LuisEdgardo - Last Filed: 09/02/18 12:35> Medical Decision Making ED Course and Treatment: 08/31/18 23:12 Impression: 53 year old male presents with headache and chest pain Heart Score:2 Differential Diagnoses Include But Are Not Limited To: --ACS --Costochondritis Plan: -- Labs -- Chest X-ray -- Toradol -- Urinalysis -- Reassess and disposition Prior Visits: Notes and results from previous visits were reviewed. Progress Notes: 09/01/18 01:14 Labs reviewed with no acute abnormalities with hyponatremia noted to be at baseline. Blood pressure rechecked and noted to have SBP 130s. Will hold off on Lopressor for now. Patient reassessed and reports improvement in headache. Scripts provided. He is stable for discharge. - Lab Interpretations Lab Results: 08/31/18 23:20 08/31/18 23:20 Lab Results 08/31/18 23:20: Alcohol, Quantitative 167 H 08/31/18 23:20: Sodium 128 L, Potassium 3.5 L, Chloride 87 L, Carbon Dioxide 27, Anion Gap 17, BUN 12, Creatinine 0.8, Est GFR ( Amer) > 60, Est GFR (Non-Af Amer) > 60, Random Glucose 100, Calcium 8.6, Magnesium 1.6 L, Total Bilirubin 0.6, AST 58, ALT 58 H, Alkaline Phosphatase 73, Troponin I < 0.01, NT-Pro-B Natriuret Pep 29.0, Total Protein 7.6, Albumin 4.4, Globulin 3.2, Albumin/Globulin Ratio 1.4 08/31/18 23:20: WBC 6.4, RBC 4.78, Hgb 15.1, Hct 41.5 L, MCV 86.8, MCH 31.6, MCHC 36.4, RDW 12.6, Plt Count 275, MPV 8.9, Gran % 49.5 L, Lymph % (Auto) 40.5 H, Dooly % (Auto) 6.9 H, Eos % (Auto) 2.5, Baso % (Auto) 0.6, Gran # 3.17, Lymph # (Auto) 2.6, Dooly # (Auto) 0.4, Eos # (Auto) 0.2, Baso # (Auto) 0.04 I have reviewed the lab results: Yes - RAD Interpretation Radiology Orders: 08/31/18 22:40 CHEST PORTABLE [RAD] Stat - Medication Orders Current Medication Orders: Sodium Chloride (Sodium Chloride 0.9%) 1,000 mls @ 999 mls/hr IV .Q1H1M STA Stop: 08/31/18 23:40 Discontinued Medications Ketorolac Tromethamine (Toradol) 30 mg IVP STAT STA Stop: 08/31/18 22:41 <Luke Zelaya - Last Filed: 09/01/18 18:43> - Lab Interpretations Lab Results: Troponin I < 0.01 ng/mL 08/31/18 23:20 NT-Pro-B Natriuret Pep 29.0 pg/mL (0-450) 08/31/18 23:20 Total Bilirubin 0.6 mg/dL (0.2-1.3) 08/31/18 23:20 AST 58 U/L (17-59) 08/31/18 23:20 ALT 58 U/L (7-56) H 08/31/18 23:20 Alkaline Phosphatase 73 U/L (38-126) 08/31/18 23:20 Total Protein 7.6 g/dL (5.8-8.3) 08/31/18 23:20 Albumin 4.4 g/dL (3.0-4.8) 08/31/18 23:20 Globulin 3.2 gm/dL 08/31/18 23:20 Albumin/Globulin Ratio 1.4 (1.1-1.8) 08/31/18 23:20 - RAD Interpretation Radiology Orders: 08/31/18 22:40 CHEST PORTABLE [RAD] Stat - Medication Orders Current Medication Orders: Discontinued Medications Sodium Chloride (Sodium Chloride 0.9%) 1,000 mls @ 999 mls/hr IV .Q1H1M STA Stop: 08/31/18 23:40 Last Admin: 09/01/18 01:14 Dose: Not Given Non-Admin Reason: BP Parameters Not Met Ketorolac Tromethamine (Toradol) 30 mg IVP STAT STA Stop: 08/31/18 22:41 Last Admin: 08/31/18 22:59 Dose: 30 mg MAR Pain Assessment Document 08/31/18 22:59 (Rec: 09/01/18 01:05 [id number] Pain Reassessment Is this a pain reassessment? Yes Sleep Is patient sleeping during reassessment? No Presence of Pain Presence of Pain Yes IVP Administration Document 08/31/18 22:59 (Rec: 09/01/18 01:05 [id number] Charges for Administration # of IVP Administrations 1 Re-Assess: MAR Pain Assessment Document 08/31/18 23:59 (Rec: 09/01/18 01:15 [id number] Pain Reassessment Is this a pain reassessment? Yes Sleep Is patient sleeping during reassessment? Yes Metoclopramide HCl (Reglan) 10 mg IVP STAT STA Stop: 08/31/18 23:31 Last Admin: 09/01/18 01:12 Dose: 10 mg IVP Administration Document 09/01/18 01:12 RG (Rec: 09/01/18 01:13 [id number] Charges for Administration # of IVP Administrations 1 <Edgardo Smith - Last Filed: 09/02/18 12:35> - Scribe Statement The provider has reviewed the documentation as recorded by the Laceyibstarla Friend Provider Scribe Attestation: All medical record entries made by the Scribe were at my direction and personally dictated by me. I have reviewed the chart and agree that the record accurately reflects my personal performance of the history, physical exam, medical decision making, and the department course for this patient. I have also personally directed, reviewed, and agree with the discharge instructions and disposition. <Luke Zelaya - Last Filed: 09/01/18 18:43> - PA / CAREER CENTER ADVISOR / Resident Statement / has reviewed & agrees with the documentation as recorded. <Edgardo Smith - Last Filed: 09/02/18 12:35> Disposition/Present on Arrival - Present on Arrival Any Indicators Present on Arrival: No History of DVT/PE: No History of Uncontrolled Diabetes: No Urinary Catheter: No History of Decub. Ulcer: No History Surgical Site Infection Following: None - Disposition Have Diagnosis and Disposition been Completed?: Yes Disposition Time: 01:18 Patient Plan: Discharge <Luke Zelaya - Last Filed: 09/01/18 18:43> <Edgardo Smith - Last Filed: 09/02/18 12:35> - Disposition Diagnosis: Tension headache, Alcohol intoxication Disposition: HOME/ ROUTINE Condition: STABLE Discharge Instructions (ExitCare): Tension Headache (DC), Alcohol Abuse and Alcoholism (DC) Print Language: ARMENIAN Additional Instructions: All medical record entries made by the Scribe were at my direction and personally dictated by me. I have reviewed the chart and agree that the record accurately reflects my personal performance of the history, physical exam, medical decision making, and the department course for this patient. I have also personally directed, reviewed, and agree with the discharge instructions and disposition. Prescriptions: RX: Losartan [Cozaar] 25 mg PO DAILY #10 tab Metoprolol Tartrate [Lopressor] 25 mg PO DAILY #10 tab Referrals: Magdiel Cm MD [Primary Care Provider] - Follow up with primary Destiney العراقي MD [Medical Doctor] - Follow up with primary [facility] at [facility] [place] [facility] [Outside] - Follow up with primary Forms: [employer] (Latvian), WORK NOTE
[2018-08-31 23:44] LABS: BASO # 0.04 K/mm3 (0.0-2.0); BASO % 0.6 % (0.0-3.0); EOS # 0.2 (0.0-0.7); EOS % 2.5 % (1.5-5.0); GRAN # 3.17 (1.4-6.5); GRAN % 49.5 % (50.0-68.0); HEMOGLOBIN 15.1 g/dL (14.0-18.0); LYMPH # 2.6 (1.2-3.4); LYMPH % 40.5 % (22.0-35.0); MEAN CELL VOLUME 86.8 fl (80.0-105.0); MEAN CORPUSCULAR HEMOGLOBIN 31.6 pg (25.0-35.0); MEAN CORPUSCULAR HGB CONC 36.4 g/dl (31.0-37.0); MEAN PLATELET VOLUME 8.9 fl (7.0-11.0); MONO # 0.4 (0.1-0.6); MONO % 6.9 % (1.0-6.0); RBC 4.78 10^6/uL (3.5-6.1); RED CELL DISTRIBUTION WIDTH 12.6 % (11.5-14.5); WHITE BLOOD COUNT 6.4 10^3/uL (4.5-11.0)
[2018-08-31 23:53] LABS: ALB/GLOB RATIO 1.4 (1.1-1.8); ALBUMIN 4.4 g/dL (3.0-4.8); ALT/SGPT 58 U/L (7-56); AST/SGOT 58 U/L (17-59); BLOOD UREA NITROGEN 12 mg/dL (7-21); CALCIUM 8.6 mg/dL (8.4-10.5); GFR NON-AFRICAN AMERICAN > 60
[2018-09-01 00:04] LABS: TROPONIN I < 0.01 ng/mL
[2018-09-01] MEDS ORDERED: Metoprolol 1 mg/ml Inj IVP STA (00:18)
[2018-09-01 01:17] VITALS: RESP 16; O2SAT 100
[2018-09-01 07:34] VITALS: BP 128/87; PULSE 91; TEMP 98.1
--- NOTE | 2018-09-01 10:12 | RAD ---
Date of service: 08/31/2018 HISTORY: chest pain COMPARISON: 07/04/2018 FINDINGS: LUNGS: No active pulmonary disease. PLEURA: No significant pleural effusion identified, no pneumothorax apparent. CARDIOVASCULAR: No aortic atherosclerotic calcification present. Normal cardiac size. No pulmonary vascular congestion. OSSEOUS STRUCTURES: No significant abnormalities. VISUALIZED UPPER ABDOMEN: Normal. OTHER FINDINGS: Aortic tortuosity IMPRESSION: No active disease.
--- NOTE | 2018-09-01 20:42 | CARD ---
APPROVED REPORT Date of service: 08/31/2018 EKG Measurement Heart [id number] DC [id number] <Conclusion> Normal sinus rhythm Possible Left atrial enlargement Borderline ECG
== END 2018-09-01 02:15 | disposition home or self-care (01) ==
LOC: ED 22:27
DX: G44.209 Tension-type headache, unspecified, not intractable (principal); F10.129 Alcohol abuse with intoxication, unspecified; Y90.6 Blood alcohol level of 120-199 mg/100 ml; I10 Essential (primary) hypertension; F17.210 Nicotine dependence, cigarettes, uncomplicated
CPT/HCPCS: 71045; 80053; 80320; 83735; 83880; 84484; 85025; 93005; 96374; 96375; 99284; J1885; J2765